=== PATIENT | male | born 1945 | race Caucasian/White ===

== ENCOUNTER → 2016-06-12 | Outpatient (CLI) | payer MEDICARE | END | disposition home or self-care (01) | LOC: PCVCCLINIC 11:50 | PROVIDERS: ATTEND Internal Medicine Cardiovascular Disease | DX: I48.91 Unspecified atrial fibrillation (principal); I10 Essential (primary) hypertension; I73.9 Peripheral vascular disease, unspecified; R60.9 Edema, unspecified | CPT/HCPCS: 93005; G0463 ==

== ENCOUNTER → 2016-12-14 | Outpatient (CLI) | payer MEDICARE ==
--- NOTE | 2016-12-14 12:47 | PCVCIMAG ---
APPROVED REPORT Study performed: 12/14/2016 09:39:40 EXAM: Comprehensive 2D, Doppler, and color-flow Echocardiogram Patient Location: Echo lab Status: routine BSA: 2.09 HR: 82 bpmBP: 120/66 mmHg Rhythm: Atrial Fibrillation Other Information Study Quality: Adequate Risk Factors: Cardiac Risk Factors: HTN Indications Atrial Fibrillation Edema 2D Dimensions LVEF(%): 47.40 (>50%) IVSd: 11.11 (7-11mm)LVOT Diam: 20.84 (18-24mm) LVDd: 48.50 mm PWd: 10.39 (7-11mm)Ascending Ao: 35.47 (22-36mm) LVDs: 36.95 (25-40mm) Left Atrium: 37.66 (27-40mm) Aortic Root: 33.82 mm LV Single Plane 4CH: 40.56 % LV Single Plane 2CH: 42.90 %Fontenot's LVEF: 41.73 % Biplane EF: 42.6 % Volumes Left Atrial Volume (Systole) Single Plane 4CH: 84.91 mLSingle Plane 2CH: 85.69 mL LA ESV Index: 44.00 mL/m2 Aortic Valve AoV Peak Armond.: 1.39 m/s AO Peak Gr.: 7.81 mmHgLVOT Max P.85 mmHg LVOT Max V: 0.68 m/s JUDI Vmax: 1.66 cm2 AI Vmax: 4.11 m/s AI Desha: 2.12 m/s2 AI PHT: 563.79 ms Pulmonary Valve PV Peak Armond.: 0.60 m/sPV Peak Gr.: 1.47 mmHg Left Ventricle The left ventricle is normal size. There is normal left ventricular wall thickness. Left ventricular systolic function is mildly decreased. LVEF is 45%. This study is not technically sufficient to allow evaluation of the LV diastolic function due to atrial fibrillation. Right Ventricle The right ventricle is normal size. The right ventricular systolic function is normal. Atria Left atrium is moderately dilated. Right atrium is moderately dilated. Aortic Valve Moderate aortic sclerosis. Mild to moderate aortic regurgitation. There is no aortic valvular stenosis. Mitral Valve The mitral valve is normal in structure. There is no mitral valve regurgitation noted. No evidence of mitral valve stenosis. Tricuspid Valve The tricuspid valve is normal in structure. There is no tricuspid valve regurgitation noted. Pulmonic Valve The pulmonary valve is normal in structure. There is mild pulmonic valvular regurgitation. Great Vessels The aortic root is normal in size. IVC is normal in size and collapses with >50% inspiration Pericardium There is no pericardial effusion. <Conclusion> The left ventricle is normal size. Left ventricular systolic function is mildly decreased. The right ventricle is normal size. Left atrium is moderately dilated. Right atrium is moderately dilated. Mild to moderate aortic regurgitation. The mitral valve is normal in structure.
== END | disposition home or self-care (01) ==
LOC: PCVCIMAG 09:45
PROVIDERS: ATTEND Internal Medicine Cardiovascular Disease
DX: I35.1 Nonrheumatic aortic (valve) insufficiency (principal); I37.1 Nonrheumatic pulmonary valve insufficiency; I48.91 Unspecified atrial fibrillation; I10 Essential (primary) hypertension; R60.9 Edema, unspecified; K21.9 Gastro-esophageal reflux disease without esophagitis; M19.90 Unspecified osteoarthritis, unspecified site; F17.200 Nicotine dependence, unspecified, uncomplicated; I73.9 Peripheral vascular disease, unspecified; Z95.828 Presence of other vascular implants and grafts; Z96.642 Presence of left artificial hip joint
CPT/HCPCS: 93005; 93306; G0463

== ENCOUNTER → 2017-12-27 | Outpatient (CLI) | payer MEDICARE ==
--- NOTE | 2017-12-27 11:57 | PCVCIMAG ---
APPROVED REPORT Study performed: 12/27/2017 10:13:59 EXAM: Comprehensive 2D, Doppler, and color-flow Echocardiogram Patient Location: Echo lab Status: routine BSA: 2.08 HR: 83 bpmBP: 114/72 mmHg Rhythm: Atrial Fibrillation Other Information Study Quality: Adequate Risk Factors: Cardiac Risk Factors: Smoking, HTN Indications Atrial Fibrillation 2D Dimensions IVSd: 9.98 (7-11mm)LVOT Diam: 20.00 (18-24mm) LVDd: 45.64 mm PWd: 10.96 (7-11mm)Ascending Ao: 32.17 (22-36mm) LVDs: 34.50 (25-40mm) Left Atrium: 41.44 (27-40mm) Aortic Root: 31.06 mm LV Single Plane 4CH: 43.56 % LV Single Plane 2CH: 50.89 % Biplane EF: 46.5 % Volumes Left Atrial Volume (Systole) Single Plane 4CH: 44.71 mLSingle Plane 2CH: 40.70 mL LA ESV Index: 21.00 mL/m2 Aortic Valve AoV Peak Armond.: 1.67 m/s AO Peak Gr.: 11.78 mmHgLVOT Max P.84 mmHg LVOT Max V: 0.83 m/s JUDI Vmax: 1.55 cm2 AI Vmax: 4.01 m/s AI Otero: 1.74 m/s2 AI PHT: 682.74 ms Pulmonary Valve PV Peak Armond.: 0.65 m/sPV Peak Gr.: 1.71 mmHg Tricuspid Valve RAP Estimate: 7.00 mmHg Left Ventricle The left ventricle is normal size. There is normal LV segmental wall motion. Borderline concentric left ventricular hypertrophy. Left ventricular systolic function is mildly decreased. LVEF is 45-50%. This study is not technically sufficient to allow evaluation of the LV diastolic function due to atrial fibrillation. Right Ventricle The right ventricle is normal size. The right ventricular systolic function is normal. Atria Left atrium is dilated. Right atrium is moderately dilated. Aortic Valve The aortic valve is normal in structure. Mild to moderate aortic regurgitation. There is no aortic valvular stenosis. Mitral Valve The mitral valve is normal in structure. There is no mitral valve regurgitation noted. No evidence of mitral valve stenosis. Tricuspid Valve The tricuspid valve is normal in structure. There is no tricuspid valve regurgitation noted. Pulmonic Valve The pulmonary valve is normal in structure. Mild to moderate pulmonic regurgitation. Great Vessels The aortic root is normal in size. IVC is normal in size and collapses >50% with inspiration. Pericardium There is no pericardial effusion. <Conclusion> The left ventricle is normal size. Left ventricular systolic function is mildly decreased. The right ventricle is normal size. Left atrium is dilated. Right atrium is moderately dilated. Mild to moderate aortic regurgitation. There is no mitral valve regurgitation noted. There is no tricuspid valve regurgitation noted.
== END | disposition home or self-care (01) ==
LOC: PCVCIMAG 12:45
PROVIDERS: ATTEND Internal Medicine Cardiovascular Disease
DX: I35.1 Nonrheumatic aortic (valve) insufficiency (principal); I37.1 Nonrheumatic pulmonary valve insufficiency; I48.91 Unspecified atrial fibrillation; I10 Essential (primary) hypertension; R94.31 Abnormal electrocardiogram [ECG] [EKG]; R60.9 Edema, unspecified; Z79.899 Other long term (current) drug therapy; F17.200 Nicotine dependence, unspecified, uncomplicated
CPT/HCPCS: 93005; 93306; G0463

== ENCOUNTER → 2018-07-15 | Outpatient (CLI) | payer MEDICARE | END | disposition home or self-care (01) | LOC: PCVCCLINIC 13:13 | PROVIDERS: ATTEND Internal Medicine Cardiovascular Disease | DX: I48.91 Unspecified atrial fibrillation (principal); I10 Essential (primary) hypertension; R60.9 Edema, unspecified; K21.9 Gastro-esophageal reflux disease without esophagitis; Z87.891 Personal history of nicotine dependence | CPT/HCPCS: 93005; G0463 ==

== ENCOUNTER → 2019-01-14 | Outpatient (CLI) | payer MEDICARE ==
--- NOTE | 2019-01-14 10:30 | PCVCIMAG ---
APPROVED REPORT Study performed: 01/14/2019 09:12:28 EXAM: Comprehensive 2D, Doppler, and color-flow Echocardiogram Patient Location: Echo lab Status: routine BSA: 2.08 HR: 86 bpmBP: 122/70 mmHg Rhythm: Atrial Fibrillation Other Information Study Quality: Technically Difficult Risk Factors: Cardiac Risk Factors: HTN, Smoking Indications Atrial Fibrillation Hypertension/HDD Edema, PVD 2D Dimensions IVSd: 10.30 (7-11mm)LVOT Diam: 22.62 (18-24mm) LVDd: 44.14 mm PWd: 8.67 (7-11mm)Ascending Ao: 36.20 (22-36mm) LVDs: 39.40 (25-40mm) Left Atrium: 42.77 (27-40mm) Aortic Root: 35.60 mm LV Single Plane 4CH: 44.50 % LV Single Plane 2CH: 41.16 % Biplane EF: 42.3 % Volumes Left Atrial Volume (Systole) Single Plane 4CH: 72.46 mLSingle Plane 2CH: 61.19 mL LA ESV Index: 33.00 mL/m2 Aortic Valve AoV Peak Armond.: 1.55 m/s AO Peak Gr.: 9.61 mmHgLVOT Max P.78 mmHg LVOT Max V: 0.57 m/s JUDI Vmax: 1.48 cm2 AI Vmax: 3.96 m/s AI Clayton: 2.50 m/s2 AI PHT: 488.62 ms Mitral Valve E/A Ratio: 1.0 MV E Max Armond.: 1.05 m/s MV A Armond.: 1.04 m/s Pulmonary Valve PV Peak Gr.: 0.96 mmHg Left Ventricle The left ventricle is normal size. There is normal LV segmental wall motion. There is normal left ventricular wall thickness. Left ventricular systolic function is mildly decreased. LVEF is 45%. This study is not technically sufficient to allow evaluation of the LV diastolic function due to atrial fibrillation. Right Ventricle The right ventricle is normal size. The right ventricular systolic function is normal. Atria Left atrium is moderately dilated. Right atrium is moderately dilated. Aortic Valve The Aortic valve is sclerotic. Mild to moderate aortic regurgitation. There is no aortic valvular stenosis. Mitral Valve The mitral valve is normal in structure. There is no mitral valve regurgitation noted. No evidence of mitral valve stenosis. Tricuspid Valve The tricuspid valve is normal in structure. There is no tricuspid valve regurgitation noted. Pulmonic Valve The pulmonary valve is normal in structure. There is no pulmonic valvular regurgitation. Great Vessels The aortic root is normal in size. IVC is normal in size and collapses >50% with inspiration. Pericardium There is no pericardial effusion. <Conclusion> The left ventricle is normal size. There is normal left ventricular wall thickness. Left ventricular systolic function is mildly decreased. The right ventricle is normal size. Left atrium is moderately dilated. Right atrium is moderately dilated. The Aortic valve is sclerotic. Mild to moderate aortic regurgitation. There is no mitral valve regurgitation noted. There is no tricuspid valve regurgitation noted.
== END | disposition home or self-care (01) ==
LOC: PCVCIMAG 09:04
PROVIDERS: ATTEND Internal Medicine Cardiovascular Disease
DX: I06.1 Rheumatic aortic insufficiency (principal); I48.91 Unspecified atrial fibrillation; I10 Essential (primary) hypertension; Z87.891 Personal history of nicotine dependence
CPT/HCPCS: 93005; 93306; G0463